=== PATIENT | female | born 1945 | race American Indian/Alaskan Native ===

== ENCOUNTER 2017-09-15 08:49 | Day surgery (SDC) | payer OTHER ==
[2017-09-15 09:01] VITALS: BMI 41.0
[2017-09-15] MEDS ORDERED: Propofol 10 mg/ml Inj (20 ML) ONE (09:22)
--- NOTE | 2017-09-15 09:50 | CP.SDSHP ---
Same Day Surgery H & P - History Proposed Procedure: egd/colon Pre-Op Diagnosis: globus/screening - Allergies Allergies: Allergies No Known Allergies Allergy (Verified 02/26/16 11:10) - Physical Exam General Appearance: nl Vital Signs: Vital Signs 09/15/17 08:58 Temperature 97.5 F L Pulse Rate 65 Respiratory 19 Rate Blood Pressure 132/72 O2 Sat by Pulse 97 Oximetry Mental Status: Alert & Oriented x3 Neuro: WNL Heart: WNL Lungs: WNL GI: WNL - {Optional Preform as Required} Abdomen: WNL - Impression Impression: egd/colon Pt. Evaluated Today:Candidate for Anesthesia & Procedure: Yes - Date & Time Date: 09/15/17 Time: 09:49 Short Stay Discharge - Short Stay Discharge Admitting Diagnosis/Reason for Visit: H-PYLORI, SCREENING Disposition: HOME/ ROUTINE
[2017-09-15 10:16] VITALS: O2SAT 100
[2017-09-15 10:40] VITALS: TEMP 97.3
[2017-09-15 12:15] VITALS: BP 126/75; PULSE 54; RESP 18
== END 2017-09-15 12:10 | disposition home or self-care (01) ==
LOC: C.ENDO 08:49
PROVIDERS: ATTEND Internal Medicine
DX: A04.8 Other specified bacterial intestinal infections (principal); F45.8 Other somatoform disorders; Z12.11 Encounter for screening for malignant neoplasm of colon; D12.0 Benign neoplasm of cecum; K57.30 Diverticulosis of large intestine without perforation or abscess without bleeding; K64.8 Other hemorrhoids; K29.70 Gastritis, unspecified, without bleeding
CPT/HCPCS: 43239; 45380; 88305; J2001; J2704